=== PATIENT | male | born 1990 | race Caucasian/White ===

== ENCOUNTER 2017-11-29 13:36 | Inpatient (IN) | payer OTHER ==
[~2017-11-29] VITALS: Ht 172.7 cm; Wt 72.9 kg
[~2017-11-29 13:36] MED LIST: ASEN5TAB SL; BENZ1TAB PO; KLON2TAB PO; SERT-129 PO
[2017-11-29 13:50] VITALS: BP 140/90; PULSE 93; RESP 17; TEMP 97.6; O2SAT 100
--- NOTE | 2017-11-29 13:50 | PD ---
HPI Chief Complaint: BA Time Seen by Provider: 13:47 Travel History International Travel<30 days: No Contact w/Intl Traveler<30days: No Traveled to known affect area: No History of Present Illness HPI This is a 27-year-old male who presents under Castle act initiated by the [employer]. According to his paperwork, "subject is diagnosed schizoaffective disorder. Stated he was going to cut himself with a saw. He was hearing voices saying they were going to hurt him." The patient reports that he sees psychiatrist Dr. Chan. 2 days ago his Wellbutrin dose was doubled. He reports that since then he has been having hallucinations. He reports that today he was hearing children play outside that he does not believe there. He then believe that his friend who he has not seen in several years was in the bushes in front of his house cutting down the bushes. He denies saying that he was going to cut himself with a saw. He reports that he told his mother that he thought that his friend was going to cut into the house. He reports that he has only had hallucinations once in the past, years ago when he was withdrawing from gabapentin. He denies any drug or alcohol use. He has no other complaints. PFSH Past Medical History ADHD: No Asthma: No Autoimmune Disease: No Blood Disorders: No Bipolar Disorder: Yes Anxiety: Yes Depression: Yes Cancer: No Cardiovascular Problems: No Diabetes: No Diminished Hearing: No Endocrine: No GERD: Yes Genitourinary: No Headaches: Yes Immune Disorder: No Musculoskeletal: No Neurologic: Yes Psychiatric: Yes (DEPRESSION) Reproductive: No Respiratory: No Migraines: No Schizophrenia: Yes Seizures: No Thyroid Disease: No Ulcer: No Past Surgical History Abdominal Surgery: No Appendectomy: No Cardiac Surgery: No Cholecystectomy: No Ear Surgery: No Endocrine Surgery: No Eye Surgery: No Genitourinary Surgery: No Gynecologic Surgery: No Neurologic Surgery: No Oral Surgery: No Thoracic Surgery: No Other Surgery: Yes (club foot) Social History Alcohol Use: No (pt denies " never ") Tobacco Use: Yes (1/2 ppd) Substance Use: Yes Allergies-Medications (Allergen,Severity, Reaction): Coded Allergies: amoxicillin (Unverified Allergy, Severe, Hives, 07/03/17) penicillin G (Unverified Allergy, Severe, Hives, 07/03/17) Reported Meds & Prescriptions Reported Meds & Active Scripts Active Klonopin (Clonazepam) 2 Mg Tab 2 Mg PO TID Benztropine Mesylate 1 Mg Tab 1 Mg PO TID 5 Days Sertraline 100 mg (Sertraline HCl) 100 Mg Tab 1 Tab PO DAILY 5 Days Saphris 5 mg (Asenapine Maleate 5 mg) 5 Mg Sub 10 Mg SL HS 5 Days Review of Systems Except as stated in HPI: all other systems reviewed are Neg Physical Exam Narrative GENERAL: Well-developed well-nourished male in no acute distress SKIN: Warm and dry. HEAD: Atraumatic. Normocephalic. EYES: Pupils equal and round. No scleral icterus. No injection or drainage. ENT: No nasal bleeding or discharge. Mucous membranes pink and moist. NECK: Trachea midline. No JVD. CARDIOVASCULAR: Regular rate and rhythm. No murmur appreciated. RESPIRATORY: No accessory muscle use. Clear to auscultation. Breath sounds equal bilaterally. GASTROINTESTINAL: Abdomen soft, non-tender, nondistended. Hepatic and splenic margins not palpable. MUSCULOSKELETAL: No obvious deformities. No clubbing. No cyanosis. No edema. NEUROLOGICAL: Awake and alert. No obvious cranial nerve deficits. Motor grossly within normal limits. Normal speech. PSYCHIATRIC: Anxious, guarded. Data Data Last Documented VS Vital Signs Date Time Temp Pulse Resp B/P (MAP) Pulse Ox O2 Delivery O2 Flow Rate FiO2 11/29/17 13:50 97.6 93 17 140/90 (107) 100 Orders Orders Complete Blood Count With Diff (11/29/17 13:59) Comprehensive Metabolic Panel (11/29/17 13:59) Psych Screen (11/29/17 13:59) Drug Screen, Random Urine (11/29/17 13:59) Labs Laboratory Tests Test 11/29/17 15:30 White Blood Count 8.5 TH/MM3 Red Blood Count 4.91 MIL/MM3 Hemoglobin 14.5 GM/DL Hematocrit 42.0 % Mean Corpuscular Volume 85.6 FL Mean Corpuscular Hemoglobin 29.5 PG Mean Corpuscular Hemoglobin Concent 34.4 % Red Cell Distribution Width 13.5 % Platelet Count 276 TH/MM3 Mean Platelet Volume 8.6 FL Neutrophils (%) (Auto) 50.1 % Lymphocytes (%) (Auto) 37.9 % Monocytes (%) (Auto) 9.7 % Eosinophils (%) (Auto) 1.6 % Basophils (%) (Auto) 0.7 % Neutrophils # (Auto) 4.3 TH/MM3 Lymphocytes # (Auto) 3.2 TH/MM3 Monocytes # (Auto) 0.8 TH/MM3 Eosinophils # (Auto) 0.1 TH/MM3 Basophils # (Auto) 0.1 TH/MM3 CBC Comment DIFF FINAL Differential Comment Blood Urea Nitrogen 11 MG/DL Creatinine 1.06 MG/DL Random Glucose 100 MG/DL Total Protein 8.0 GM/DL Albumin 4.3 GM/DL Calcium Level 9.2 MG/DL Alkaline Phosphatase 74 U/L Aspartate Amino Transf (AST/SGOT) 9 U/L Alanine Aminotransferase (ALT/SGPT) 35 U/L Total Bilirubin 0.7 MG/DL Sodium Level 138 MEQ/L Potassium Level 3.7 MEQ/L Chloride Level 102 MEQ/L Carbon Dioxide Level 27.6 MEQ/L Anion Gap 8 MEQ/L Estimat Glomerular Filtration Rate 84 ML/MIN Urine Opiates Screen NEG Urine Barbiturates Screen NEG Urine Amphetamines Screen POS Urine Benzodiazepines Screen NEG Urine Cocaine Screen NEG Urine Cannabinoids Screen NEG MDM Medical Decision Making Medical Screen Exam Complete: Yes Emergency Medical Condition: Yes Medical Record Reviewed: Yes Differential Diagnosis Acute psychosis, substance induced mood disorder, schizoaffective disorder, schizophrenia, bipolar disorder Narrative Course 27-year-old male presents under Castle act for psychiatric evaluation. Mental health screening discussed with the patient. Psychiatric screen ordered. Drug screen positive for amphetamines. Medically cleared for psychiatric disposition. Diagnosis Primary Impression: Medical clearance for psychiatric admission Ronnie Sun Nov 29, 2017 13:50
[2017-11-29 16:34] LABS: ALBUMIN 4.3 GM/DL (3.4-5.0); AST (GOT) 9 U/L (15-37); BICARBONATE 27.6 MEQ/L (21.0-32.0); BLOOD UREA NITROGEN 11 MG/DL (7-18); CALCIUM 9.2 MG/DL (8.5-10.1); CHLORIDE 102 MEQ/L (98-107); CREATININE 1.06 MG/DL (0.60-1.30); GLOMERULAR FILTRATION RATE 84 ML/MIN (>89); GLUCOSE,RANDOM 100 MG/DL (74-106); SODIUM (NA) 138 MEQ/L (136-145)
[2017-11-29 16:35] LABS: ALT (GPT) 35 U/L (12-78)
[2017-11-29 16:37] LABS: ALKALINE PHOSPHATASE 74 U/L (45-117); TOTAL BILIRUBIN ADULT 0.7 MG/DL (0.2-1.0)
[2017-11-29 16:51] LABS: AUTOMATED NEUTROPHIL # 4.3 TH/MM3 (1.8-7.7); BASOPHIL # 0.1 TH/MM3 (0-0.2); BASOPHIL % 0.7 % (0.0-2.0); EOSINOPHIL # 0.1 TH/MM3 (0-0.4); EOSINOPHIL % 1.6 % (0.0-4.0); HEMOGLOBIN 14.5 GM/DL (13.0-17.0); LYMPH % 37.9 % (9.0-44.0); LYMPHOCYTE # 3.2 TH/MM3 (1.0-4.8); MEAN CELL VOLUME 85.6 FL (80.0-100.0); MEAN CORPUSCULAR HEMOGLOBIN 29.5 PG (27.0-34.0); MEAN CORPUSCULAR HGB CONC 34.4 % (32.0-36.0); MEAN PLATELET VOLUME 8.6 FL (7.0-11.0); MONO % 9.7 % (0.0-8.0); MONOCYTE # 0.8 TH/MM3 (0-0.9); NEUT % 50.1 % (16.0-70.0); PLATELET COUNT 276 TH/MM3 (150-450); RED BLOOD COUNT 4.91 MIL/MM3 (4.50-5.90); RED CELL DISTRIBUTION WIDTH 13.5 % (11.6-17.2); WHITE BLOOD COUNT 8.5 TH/MM3 (4.0-11.0)
[2017-11-29 19:55] VITALS: BP 139/82; PULSE 81; RESP 18; TEMP 98.2; O2SAT 100
[2017-11-29] MEDS ORDERED: BUSP1TAB PO (21:48)
[2017-11-29] MEDS ORDERED: BUPR150XL PO (21:48)
[2017-11-29] MEDS ORDERED: REST15CA PO (21:48)
[2017-11-29] MEDS ORDERED: ADDE30TA PO (21:48)
--- NOTE | 2017-11-29 22:39 | PD ---
History of Present Illness Chief Complaint: Psychiatric Symptoms Time Seen by Provider: 21:30 Travel History International Travel<30 Days: No Contact w/Intl Traveler<30days: No Known affected area: No Legal Status Legal Status: Castle Act Castle Act Signed By: Shereen Ulloa History of Present Illness: History of Present Illness HPI This is a 27-year-old male with reported history of schizoaffective disorder, anxiety disorder who presents under Castle act initiated by the [employer]. According to his paperwork, "subject is diagnosed schizoaffective disorder. Stated he was going to cut himself with a saw. He was hearing voices saying they were going to hurt him." The patient also reported that he was hearing voices including hearing children playing outside of his home, he believed that his friend who he has not seen in several years was in the bushes in front of his house cutting down the bushes. Electronic medical record is reviewed. No recent contact with [facility] psychiatry Department. Toxicology positive for amphetamines which are prescribed. The patient is seen in [facility]. He is alert and oriented male who is dressed in [facility] and maintaining hygiene. He appears internally stimulated although he denies he is currently hearing voices. He scans his environment frequently during interview. His affect is very flat. He denies that he said he was going to cut himself and half with a saw. He denies suicidal ideation. He states that he came to the hospital to see if he could get his lab work reviewed and that he only experiences "momentary hallucinations". He does admit that after a recent medication change by his outpatient psychiatrist Dr. Radha Chan 2 days ago, he has not been feeling as well as he had in the past. I contacted his mother Ms. Millie Vincent for collateral information. She reports that the patient has been under increasing stressors during the past several months including that she has stage IV breast cancer. She goes on to tell me that he does not leave the house for any reason except to go to the doctor's office. He reported to her that he was hearing voices and seeing things and that he was going outside the home last night believing that there were people out there that were going to punch him. He asked the mother to call the police. He also was asking the mother for DNR paperwork to be filed on his behalf and told her "you also find out why". Patient allegedly also asked the brother to get him a headstone and instructed him that the headstone will read "I was sick and no one will believe me". The mother tells me that he has not slept in the last 3 days and has engaged in behavior that is unusual for him such as discharging $150 on her credit card for a online dating service. She comes farms that the patient is Wellbutrin was increased recently to 450 mg daily. His Vyvanse was changed to to generic Adderall 30 mg twice a day due to the patient having missed use his Vyvanse prescription. She states that he has a history of overusing the amphetamines . PFSH Past Medical History ADHD: No Asthma: No Autoimmune Disease: No Blood Disorders: No Bipolar Disorder: Yes Anxiety: Yes Depression: Yes Cancer: No Cardiovascular Problems: No Diabetes: No Diminished Hearing: No Endocrine: No Gastrointestinal Disorders: No GERD: Yes Genitourinary: No Headaches: Yes Immune Disorder: No Implanted Vascular Access Dvce: No Musculoskeletal: No Neurologic: Yes Psychiatric: Yes (DEPRESSION) Reproductive: No Respiratory: No Immunizations Current: Yes Migraines: No Schizophrenia: Yes Seizures: No Thyroid Disease: No Ulcer: No Past Surgical History Abdominal Surgery: No Appendectomy: No Cardiac Surgery: No Cholecystectomy: No Ear Surgery: No Endocrine Surgery: No Eye Surgery: No Genitourinary Surgery: No Gynecologic Surgery: No Neurologic Surgery: No Oral Surgery: No Thoracic Surgery: No Other Surgery: Yes (club foot) Psychiatric History Psychiatric History Hx Psychiatric Treatment: PATIENT WAS LAST AT [facility] FROM 09/10/13 TO 09/11/13 FOR POSSIBLE OVERDOSE. History of Inpatient Treatment: Yes Guns or firearms in home: No Social History Single, unemployed. Lives with his parents. Hx Alcohol Use: No (pt denies " never ") Hx Tobacco Use: Yes (1/2 ppd) Hx Substance Use: No Hx of Substance Use Treatment: No Family Psychiatric History Negative Allergies-Medications (Allergen,Severity, Reaction): Coded Allergies: amoxicillin (Unverified Allergy, Severe, Hives, 07/03/17) penicillin G (Unverified Allergy, Severe, Hives, 07/03/17) Reported Meds & Prescriptions Reported Meds & Active Scripts Active Reported Buspirone (Buspirone HCl) 7.5 Mg Tab 7.5 Mg PO BID Restoril (Temazepam) 15 Mg Cap 15 Mg PO HS PRN Adderall (Amphetamine-Dextroamphetamine) 30 Mg Tab 30 Mg PO BID Avoid late evening doses. Space doses at least 4 to 6 hours if more than once/day dosing. Wellbutrin Xl 24 HR (Bupropion HCl) 150 Mg Tab 450 Mg PO DAILY Review of Systems Except as stated in HPI: all other systems reviewed are Neg Mental Status Examination Appearance: Appropriate Consciousness: Alert Orientation: x4 Motor Activity: Normal gait Speech: Slow Language: Adequate Fund of Knowledge: Adequate Attention and Concentration: Inadequate Memory: Unremarkable Mood: Sad Affect: Flat Thought Process & Associations: Intact Thought Content: Appropriate Hallucination Type: None Delusion Type: None Suicidal Ideation: No Suicidal Plan: No Suicidal Intention: No Homicidal Ideation: No Homicidal Plan: No Homicidal Intention: No Insight: Fair Judgment: Adequate MDM Medical Decision Making Medical Record Reviewed: Yes Assessment/Plan 27-year-old male with history of schizoaffective disorder, anxiety disorder who is under Castle act for allegedly stating that he was going to cut himself with a saw. Patient also responding to internal stimuli. There is concern that the patient has not slept in the last 3 days, has overused his amphetamine prescription, has engage in unusual behavior such as signing up for an online dating service with his mother's credit card. He has also asked his brother to purchase a tombstone for him and has asked his mother to file DNR paperwork on his behalf. This time the patient meets criteria for inpatient psychiatric hospitalization for further observation, safety and medication evaluation. Orders Orders Complete Blood Count With Diff (11/29/17 13:59) Comprehensive Metabolic Panel (11/29/17 13:59) Psych Screen (11/29/17 13:59) Drug Screen, Random Urine (11/29/17 13:59) Results Vital Signs Date Time Temp Pulse Resp B/P (MAP) Pulse Ox O2 Delivery O2 Flow Rate FiO2 11/29/17 19:55 98.2 81 18 139/82 (101) 100 Room Air 11/29/17 13:50 97.6 93 17 140/90 (107) 100 Laboratory Tests Test 11/29/17 15:30 White Blood Count 8.5 Red Blood Count 4.91 Hemoglobin 14.5 Hematocrit 42.0 Mean Corpuscular Volume 85.6 Mean Corpuscular Hemoglobin 29.5 Mean Corpuscular Hemoglobin Concent 34.4 Red Cell Distribution Width 13.5 Platelet Count 276 Mean Platelet Volume 8.6 Neutrophils (%) (Auto) 50.1 Lymphocytes (%) (Auto) 37.9 Monocytes (%) (Auto) 9.7 Eosinophils (%) (Auto) 1.6 Basophils (%) (Auto) 0.7 Neutrophils # (Auto) 4.3 Lymphocytes # (Auto) 3.2 Monocytes # (Auto) 0.8 Eosinophils # (Auto) 0.1 Basophils # (Auto) 0.1 CBC Comment DIFF FINAL Differential Comment Blood Urea Nitrogen 11 Creatinine 1.06 Random Glucose 100 Total Protein 8.0 Albumin 4.3 Calcium Level 9.2 Alkaline Phosphatase 74 Aspartate Amino Transf (AST/SGOT) 9 Alanine Aminotransferase (ALT/SGPT) 35 Total Bilirubin 0.7 Sodium Level 138 Potassium Level 3.7 Chloride Level 102 Carbon Dioxide Level 27.6 Anion Gap 8 Estimat Glomerular Filtration Rate 84 Urine Opiates Screen NEG Urine Barbiturates Screen NEG Urine Amphetamines Screen POS Urine Benzodiazepines Screen NEG Urine Cocaine Screen NEG Urine Cannabinoids Screen NEG Diagnosis Primary Impression: Medical clearance for psychiatric admission Additional Impressions: Schizoaffective disorder Amphetamine-induced psychotic disorder Admitting Information Admitting Physician Requests: Admit Problem Qualifiers Additional Impressions: Schizoaffective disorder Qualified Codes: F25.1 - Schizoaffective disorder, depressive type Amphetamine-induced psychotic disorder Qualified Codes: F15.951 - Other stimulant use, unspecified with stimulant- induced psychotic disorder with hallucinations Ayala Meneses Nov 29, 2017 22:38
[2017-11-29] MEDS ORDERED: ACETAMINOPHEN 325 MG TAB PO PRN (22:45)
[2017-11-29] MEDS ORDERED: MAGNESIUM HYDROXIDE SUSP 30 ML CUP PO PRN (22:45)
[2017-11-29] MEDS ORDERED: ALUMINUM/MAGNESIUM/SIMETH 30 ML CUP PO PRN (22:45)
[2017-11-29 23:45] VITALS: BP 125/71; PULSE 81; RESP 18; TEMP 98.2
[2017-11-30 05:44] VITALS: BP 114/58; PULSE 81; RESP 18; TEMP 98.5; O2SAT 99
[2017-11-30 11:57] LABS: BICARBONATE 30.2 MEQ/L (21.0-32.0); BLOOD UREA NITROGEN 13 MG/DL (7-18); CALCIUM 9.4 MG/DL (8.5-10.1); CHLORIDE 105 MEQ/L (98-107); CHOLESTEROL 268 MG/DL (120-200); CREATININE 1.03 MG/DL (0.60-1.30); GLOMERULAR FILTRATION RATE 87 ML/MIN (>89); GLUCOSE,RANDOM 93 MG/DL (74-106); SODIUM (NA) 141 MEQ/L (136-145); TRIGLYCERIDES 132 MG/DL (42-150)
[2017-11-30 12:07] LABS: CHOLESTEROL/ HDL RATIO 6.16 RATIO; HDL CHOLESTEROL 43.5 MG/DL (40.0-60.0); LDL CHOLESTEROL 198 MG/DL (0-99)
--- NOTE | 2017-11-30 14:33 | HHI.HP ---
Provisional Diagnosis Admission Date Nov 29, 2017 at 22:43 [place] I. 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 Express and informed consent means consent voluntarily given in writing, by a competent person, after sufficient explanation and disclosure of the subject matter involved to enable the person to make a knowing and willful decision without any element of force, fraud, deceit, duress, or other form of constraint or coercion. This person is 18 years of age or older, is not now known to be incompetent to consent to treatment with a guardian advocate, and does not have a health care surrogate or proxy currently making medical treatment decisions. I have found this person to be one of the following: [] Competent to provide express and informed consent, as defined above, for voluntary admission to this facility and is competent to provide express and informed consent for treatment. He/she has the consistent capacity to make well reasoned, willful, and knowing decisions concerning his or her medical or mental health treatment. The person fully and consistently understands the purpose of the admission for examination/placement and is fully capable of personally exercising all rights assured [place] [] Incompetent to provide express and informed consent to voluntary admission, and this is incompetent to provide express and informed consent to treatment. The person must be transferred to involuntary status and a petition for a guardian advocate filed with the Circuit Court. [xxx] Refusing to provide express and informed consent to voluntary admission but is competent to provide express and informed consent for treatment. The person must be discharged or transferred to involuntary status. Form shall be completed within 24 hours of a person's arrival at the receiving facility and filed in the clinical record of each person: 1. Admitted on a voluntary basis 2. Permitted to provide express and informed consent to his/her own treatment 3. Allowed to transfer from involuntary to voluntary status 4. Prior to permitting a person to consent to his or her own treatment after having been previously found incompetent to consent to treatment. History of Present Illness Capacity: Lacks Capacity (patient lacks capacity sign for hospitalization, patient has capacity to sign for medication) HPI Patient is a 27-year-old white male who comes her under [place] act by the [place] [employer] dated 11/29/17 at 13 12 PM that document reviewed stating subject diagnosis schizoaffective disorder stated he was going to cut himself with a saw. Was hearing voices saying they were going to hurt him" patient seen screened in the emergency department urine toxicology positive for amphetamines only, alcohol level was negative. Review of the EMR shows patient has had contact with mental health system since a teenager was hospitalized here 2005 for depression. He has had issues with misuse of psychostimulants including amphetamines and Vyvanse. At the present time is being seen by Dr. Chan. He has had adjustment of his Wellbutrin doubling the dose about a week ago. He has noticed some increase in perceptual issues vague voices and visual issues yesterday while he was exercising. The statements of somewhat confusing tangential and circumstantial. He is somewhat vague about suicidality at this time. Though the voices are somewhat of a command nature. He denies any alcohol use or other drug use Dr. Radha Chan appears to also prescribed him the Wellbutrin Restoril and BuSpar. Patient states he lives with his parents and his brother He denies any prior physical or sexual abuse. He says that his depression and his family. At the present time I feel patient does meet criteria for further observation assessment under the [place] act I will do first opinion request second opinion. I feel he does have some capacity make decisions concerning his medication. We'll try to keep him as substance free as possible at the present time. Attempted to refrain from benzodiazepines of psychostimulants. Hopefully severe fairly short stay ligature of the community into private psychiatrist Review of Systems Constitutional: DENIES: Diaphoretic episodes, Fatigue, Fever, Weight gain, Weight loss, Chills, Dizziness, Change in appetite, Night Sweats Endocrine: DENIES: Heat/cold intolerance, Polydipsia, Polyuria, Polyphagia Eyes: DENIES: Blurred vision, Diplopia, Eye inflammation, Eye pain, Vision loss , Photosensitivity, Double Vision Ears, nose, mouth, throat: DENIES: Tinnitus, Hearing loss, Vertigo, Nasal discharge, Oral lesions, Throat pain, Hoarseness, Ear Pain, Running Nose, Epistaxis, Sinus Pain, Toothache, Odynophagia Respiratory: DENIES: Apneas, Cough, Snoring, Wheezing, Hemoptysis, Sputum production, Shortness of breath Cardiovascular: DENIES: Chest pain, Palpitations, Syncope, Dyspnea on Exertion , PND, Lower Extremity Edema, Orthopnea, Claudication Gastrointestinal: DENIES: Abdominal pain, Black stools, Bloody stools, Constipation, Diarrhea, Nausea, Vomiting, Difficulty Swallowing, Anorexia Genitourinary: DENIES: Sexual dysfunction, Urinary frequency, Urinary incontinence, Urgency, Hematuria, Dysuria, Nocturia, Penile Discharge, Testicular Pain, Testicular Swelling Musculoskeletal: DENIES: Joint pain, Muscle aches, Stiffness, Joint Swelling, Back pain, Neck pain Integumentary: DENIES: Abnormal pigmentation, Nail changes, Pruritus, Rash Hematologic/lymphatic: DENIES: Bruising, Lymphadenopathy Immunologic/allergic: DENIES: Eczema, Urticaria Psychiatric: COMPLAINS OF: Anxiety, Depression, Hallucinations, Suicidal Ideation Past Psych History Psychological trauma history Patient denies physical or sexual abuse Violence risk - others (6 mos) Low Violence risk - self (6 mos) Moderate Substance Abuse History Drugs/Alcohol past 12 months Patient denies alcohol or drugs acknowledges at times misuse of psychostimulants Past Family Social History Coded Allergies: amoxicillin (Unverified Allergy, Severe, Hives, 07/03/17) penicillin G (Unverified Allergy, Severe, Hives, 07/03/17) Reported Medications Buspirone (Buspirone) 7.5 Mg Tab, 7.5 MG PO BID for Anxiety, TAB 0 Refills 11/29/17 Temazepam (Restoril) 15 Mg Cap, 15 MG PO HS Y for INSOMNIA, #30 CAP 0 Refills 11/29/17 Amphetamine-Dextroamphetamine (Adderall) 30 Mg Tab, 30 MG PO BID for Hyperactivity Control, #60 TAB 0 Refills Avoid late evening doses. Space doses at least 4 to 6 hours if more than once/day dosing. 11/29/17 Bupropion HCl ER 24 HR (Wellbutrin Xl 24 HR) 150 Mg Tab, 450 MG PO DAILY for Control Depression, TAB 0 Refills 11/29/17 Discontinued Scripts Clonazepam (Klonopin) 2 Mg Tab, 2 MG PO TID for Anxiety and/or Insomnia, #30 TAB Prov:Pete Ayon MD 08/10/15 Benztropine Mesylate (Benztropine Mesylate) 1 Mg Tab, 1 MG PO TID for schizoaffective disorder for 5 Days, TAB Prov:Surinder Victor 08/10/15 Sertraline 100 mg (Sertraline 100 mg) 100 Mg Tab, 1 TAB PO DAILY for schizoaffective disorder for 5 Days, TAB Prov:Surinder Victor 08/10/15 Asenapine Maleate 5 mg (Saphris 5 mg) 5 Mg Sub, 10 MG SL HS for schizoaffective disorder for 5 Days, SUB Prov:Surinder Victor 08/10/15 Current Medications Medications (Trade) Dose Ordered Sig/Aisha Route Start Time Stop Time Status Last Admin (Tylenol) 650 mg Q4H PRN PO 11/29/17 22:45 (Milk Of Magnesia Liq) 30 ml DAILY PRN PO 11/29/17 22:45 (Mag-Al Plus Susp Liq) 30 ml Q6H PRN PO 11/29/17 22:45 (Atarax) 50 mg Q6H PRN PO 11/30/17 14:30 UNV (Buspar) 7.5 mg BID PO 11/30/17 21:00 UNV Family Psych History Patient long history mental health contact going back to adolescence Social History Patient single lives with family Patient's Strengths (min. 2) Patient verbal labile axis health care Physical Exam Patient medically cleared through ED exam reviewed and agreed with at the present time patient sitting quietly in his room is in no acute distress. He is in no respiratory distress. No complaints of abdominal pain. Patient overall 4 extremities without difficulty. No abnormal motor movements noted Vital Signs Vital Signs Date Time Temp Pulse Resp B/P (MAP) Pulse Ox O2 Delivery O2 Flow Rate FiO2 11/30/17 05:44 98.5 81 18 114/58 (76) 99 11/29/17 19:55 Room Air I/O 11/30/17 11/30/17 12/01/17 08:00 16:00 00:00 Intake Total 480 ml Balance 480 ml Lab Results Test 11/29/17 15:30 11/30/17 10:50 White Blood Count 8.5 TH/MM3 Red Blood Count 4.91 MIL/MM3 Hemoglobin 14.5 GM/DL Hematocrit 42.0 % Mean Corpuscular Volume 85.6 FL Mean Corpuscular Hemoglobin 29.5 PG Mean Corpuscular Hemoglobin Concent 34.4 % Red Cell Distribution Width 13.5 % Platelet Count 276 TH/MM3 Mean Platelet Volume 8.6 FL Neutrophils (%) (Auto) 50.1 % Lymphocytes (%) (Auto) 37.9 % Monocytes (%) (Auto) 9.7 % Eosinophils (%) (Auto) 1.6 % Basophils (%) (Auto) 0.7 % Neutrophils # (Auto) 4.3 TH/MM3 Lymphocytes # (Auto) 3.2 TH/MM3 Monocytes # (Auto) 0.8 TH/MM3 Eosinophils # (Auto) 0.1 TH/MM3 Basophils # (Auto) 0.1 TH/MM3 CBC Comment DIFF FINAL Differential Comment Blood Urea Nitrogen 11 MG/DL 13 MG/DL Creatinine 1.06 MG/DL 1.03 MG/DL Random Glucose 100 MG/DL 93 MG/DL Total Protein 8.0 GM/DL Albumin 4.3 GM/DL Calcium Level 9.2 MG/DL 9.4 MG/DL Alkaline Phosphatase 74 U/L Aspartate Amino Transf (AST/SGOT) 9 U/L Alanine Aminotransferase (ALT/SGPT) 35 U/L Total Bilirubin 0.7 MG/DL Sodium Level 138 MEQ/L 141 MEQ/L Potassium Level 3.7 MEQ/L 3.5 MEQ/L Chloride Level 102 MEQ/L 105 MEQ/L Carbon Dioxide Level 27.6 MEQ/L 30.2 MEQ/L Anion Gap 8 MEQ/L 6 MEQ/L Estimat Glomerular Filtration Rate 84 ML/MIN 87 ML/MIN Urine Opiates Screen NEG Urine Barbiturates Screen NEG Urine Amphetamines Screen POS Urine Benzodiazepines Screen NEG Urine Cocaine Screen NEG Urine Cannabinoids Screen NEG Triglycerides Level 132 MG/DL Cholesterol Level 268 MG/DL LDL Cholesterol 198 MG/DL HDL Cholesterol 43.5 MG/DL Cholesterol/HDL Ratio 6.16 RATIO Thyroid Stimulating Hormone 3rd Gen 0.879 uIU/ML Mental Status Examination Appearance: Appropriate Consciousness: Alert Orientation: x4 Motor Activity: Normal gait Speech: Slow Language: Adequate Fund of Knowledge: Adequate Attention and Concentration: Inadequate Memory: Unremarkable Mood: Sad Affect: Flat Thought Process & Associations: Intact Thought Content: Appropriate Hallucination Type: None Delusion Type: None Suicidal Ideation: No Suicidal Plan: No Suicidal Intention: No Homicidal Ideation: No Homicidal Plan: No Homicidal Intention: No Insight: Fair Judgment: Adequate (fair) Assessment & Plan Problem List: (1) Brief psychotic disorder ICD Codes: F23 - Brief psychotic disorder Status: Acute Assessment & Plan Estimated LOS: days 3-5 it appears patient psychotic episode might be dissipating somewhat mother still some confusion and disorganization noted. I feel patient does meet criteria at this time for further observation assessment under the [place] act thus I'll do first opinion request second opinion. We will attempt to refrain from any psychostimulants benzodiazepines. Discharge Planning Probable to return to family Request HC Surrog/Guard Advoc?: No Caio Wright MD Nov 30, 2017 14:33
[2017-11-30] MEDS ORDERED: PILL SPLITTER OTHER PRN (15:00)
[2017-11-30 16:25] LABS: HEMOGLOBIN A1C 5.1 % (4.3-6.0)
--- NOTE | 2017-11-30 16:31 | EKG ---
Date Performed: 11/30/2017 Time Performed: 07:33:21 PTAGE: 27 years EKG: Sinus rhythm NORMAL ECG PREVIOUS TRACING : 08/09/2015 04.02 Since previous tracing, no significant change noted DOCTOR: Jasbir Ventura Interpretating Date/Time 11/30/2017 16:30:22
[2017-11-30 18:47] VITALS: BP 134/63; PULSE 79; RESP 18; TEMP 98; O2SAT 99
[2017-11-30 18:48] VITALS: BP 134/63; PULSE 79; RESP 18; TEMP 98; O2SAT 99
[2017-11-30] MEDS: busPIRone HCL 5 MG TAB PO SCH (21:12)
[2017-12-01] MEDS: busPIRone HCL 5 MG TAB PO SCH ×2 (10:11→23:05)
--- NOTE | 2017-12-01 12:52 | PD.CONS ---
[facility] By Reason for Consult Medical manage, seizure disorders. Primary Care Physician No Primary Care Physician Diagnoses: (1) Anxiety (2) Seizure (3) Schizoaffective disorder History of Present Illness 27-year-old male with past medical history of schizo affective disorder, anxiety , depression, and seizures. Patient was [place] acted by [employer] police department on 11/29/17 following suicidal statements of cutting himself with a saw. He is currently in inpatient psychiatry department, medical team consulted due to history of seizure disorder. Patient is seen and examined in his room resting comfortably in bed. He reports that he was previously on Klonopin to help with anxiety and recently decreased to a very minimal dose. He tells me that he had a prescription for Klonopin but somehow lost it and then later states that the pharmacy was actually not able to fill it. He was due to go back to his doctor to get a new prescription for Klonopin, however got [place] acted. He reports that his last seizure was about 18 months ago, denies ever being on any seizure medications. He also states that he has not had any Klonopin in the past several weeks. He reports that he has had seizures in the past after being taken off of Klonopin. At the time of my examination he is awake and alert, cooperative. He denies any fevers, chills, nausea, vomiting, diarrhea, shortness of breath or chest pains. Review of Systems Except as stated in HPI: all other systems reviewed are Neg Past Family Social History Allergies: Coded Allergies: amoxicillin (Unverified Allergy, Severe, Hives, 07/03/17) penicillin G (Unverified Allergy, Severe, Hives, 07/03/17) Past Medical History Schizoaffective disorder Depression Anxiety Seizures ? Benzo withdrawal. Past Surgical History left forearm surgery due to fracture Right foot surgery Reported Medications Reported Meds & Active Scripts Active Reported Buspirone (Buspirone HCl) 7.5 Mg Tab 7.5 Mg PO BID Restoril (Temazepam) 15 Mg Cap 15 Mg PO HS PRN Adderall (Amphetamine-Dextroamphetamine) 30 Mg Tab 30 Mg PO BID Avoid late evening doses. Space doses at least 4 to 6 hours if more than once/day dosing. Wellbutrin Xl 24 HR (Bupropion HCl) 150 Mg Tab 450 Mg PO DAILY Active Ordered Medications Current Medications Medications (Trade) Dose Ordered Sig/Aisha Route Start Time Stop Time Status Last Admin (Tylenol) 650 mg Q4H PRN PO 11/29/17 22:45 (Milk Of Magnesia Liq) 30 ml DAILY PRN PO 11/29/17 22:45 (Mag-Al Plus Susp Liq) 30 ml Q6H PRN PO 11/29/17 22:45 (Atarax) 50 mg Q6H PRN PO 11/30/17 14:30 12/01/17 13:26 (Buspar) 7.5 mg BID PO 11/30/17 21:00 12/01/17 10:11 (Pill Splitter) 1 ea UNSCH PRN OTHER 11/30/17 15:00 Family History Mother: colon cancer Social History Tobacco use: Uses e-cigarette Alcohol use: Denies Illicit drug use: denies Physical Exam Vital Signs Vital Signs Date Time Temp Pulse Resp B/P (MAP) Pulse Ox O2 Delivery O2 Flow Rate FiO2 11/30/17 18:48 98.0 79 18 134/63 (86) 99 11/30/17 18:47 98.0 79 18 134/63 (86) 99 Physical Exam GENERAL: This is a well-nourished, well-developed patient, in no apparent distress. SKIN: No rashes, ecchymoses or lesions. Cool and dry. HEAD: Atraumatic. Normocephalic. No temporal or scalp tenderness. EYES: Pupils equal round and reactive. Extraocular motions intact. No scleral icterus. No injection or drainage. ENT: Nose without bleeding, purulent drainage or septal hematoma. Throat without erythema. Uvula midline. Airway patent. NECK: Trachea midline. No JVD or lymphadenopathy. Supple. CARDIOVASCULAR: Regular rate and rhythm without murmurs, gallops, or rubs. RESPIRATORY: Clear to auscultation. Breath sounds equal bilaterally. No wheezes , rales, or rhonchi. GASTROINTESTINAL: Abdomen soft, non-tender, nondistended. No guarding. MUSCULOSKELETAL: Extremities without clubbing, cyanosis, or edema. No joint tenderness, effusion, or edema noted. No calf tenderness. NEUROLOGICAL: Awake and alert. Cranial nerves II through XII intact. Motor and sensory grossly within normal limits. Five out of 5 muscle strength in all muscle groups. Normal speech. Result Diagram: 11/29/17 1530 11/30/17 1050 Assessment and Plan Assessment and Plan 27-year-old male with past medical history of anxiety, schizoaffective disorder , depression, and seizures admitted to inpatient psychiatry due to suicidal statements under [place] act. Medical management consulted due to his history of seizures. Schizoaffective disorder, suicidal statements Anxiety - Management per psychiatry. Seizures - It sounds as though patient was tapered off Klonopin by his PCP since he has not been taking this for the past week. - Looked back through her past medical records here at [facility] patient was seen in July 2015 by neurology following seizures. At that time patient had been discontinued off clonazepam and seizures were suspected to be from benzo withdrawals. - Patient does not report being on any antiseizure medication, recently discontinued Klonopin several weeks ago. - Toxicology report on admission negative - Will monitor closely for seizure activity - Will not restart clonazepam at this moment as it sounds like his doctor had slowly tapered him off this. - Treatment for his anxiety we will be managed by psychiatry team. - Patient understands and is agreeable to plan. DVT prophylaxis- ambulating Patient discussed with nurse. Thank you for this consultation will continue to follow along. Problem Qualifiers (1) Schizoaffective disorder: Qualified Codes: F25.1 - Schizoaffective disorder, depressive type Fantasma Angeles Dec 01, 2017 12:52
[2017-12-01] MEDS: hydrOXYzine HCL 50 MG TAB PO PRN (13:26)
--- NOTE | 2017-12-01 15:42 | PD.PSY.CON ---
Provisional Diagnosis Admission Date Nov 29, 2017 at 22:43 [place] I. 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 Chart reviewed.Pt is a 27YOWM with a hx of schizoaffective d/o was admitted to [facility] under a BA secondary to psychosis and stating that he was going to cut himself with a saw. He reports AH began soon after wellbutrin was increased. Also of note, UDS is positive for amphetamines and per H&P pt has hx of misuse. He has been in bed most of day. His affect and mannerisms are flat. jPist Past Family Social History Coded Allergies: amoxicillin (Unverified Allergy, Severe, Hives, 07/03/17) penicillin G (Unverified Allergy, Severe, Hives, 07/03/17) Reported Medications Buspirone (Buspirone) 7.5 Mg Tab, 7.5 MG PO BID for Anxiety, TAB 0 Refills 11/29/17 Temazepam (Restoril) 15 Mg Cap, 15 MG PO HS Y for INSOMNIA, #30 CAP 0 Refills 11/29/17 Amphetamine-Dextroamphetamine (Adderall) 30 Mg Tab, 30 MG PO BID for Hyperactivity Control, #60 TAB 0 Refills Avoid late evening doses. Space doses at least 4 to 6 hours if more than once/day dosing. 11/29/17 Bupropion HCl ER 24 HR (Wellbutrin Xl 24 HR) 150 Mg Tab, 450 MG PO DAILY for Control Depression, TAB 0 Refills 11/29/17 Discontinued Scripts Clonazepam (Klonopin) 2 Mg Tab, 2 MG PO TID for Anxiety and/or Insomnia, #30 TAB Prov:Pete Ayon MD 08/10/15 Benztropine Mesylate (Benztropine Mesylate) 1 Mg Tab, 1 MG PO TID for schizoaffective disorder for 5 Days, TAB Prov:Surinder Victor 08/10/15 Sertraline 100 mg (Sertraline 100 mg) 100 Mg Tab, 1 TAB PO DAILY for schizoaffective disorder for 5 Days, TAB Prov:Surinder Victor 08/10/15 Asenapine Maleate 5 mg (Saphris 5 mg) 5 Mg Sub, 10 MG SL HS for schizoaffective disorder for 5 Days, SUB Prov:Surinder Victor 08/10/15 Current Medications Medications (Trade) Dose Ordered Sig/Aisha Route Start Time Stop Time Status Last Admin (Tylenol) 650 mg Q4H PRN PO 11/29/17 22:45 (Milk Of Magnesia Liq) 30 ml DAILY PRN PO 11/29/17 22:45 (Mag-Al Plus Susp Liq) 30 ml Q6H PRN PO 11/29/17 22:45 (Atarax) 50 mg Q6H PRN PO 11/30/17 14:30 12/01/17 13:26 (Buspar) 7.5 mg BID PO 11/30/17 21:00 12/01/17 10:11 (Pill Splitter) 1 ea UNSCH PRN OTHER 11/30/17 15:00 Patient's Strengths (min. 2) Patient verbal labile axis health care Physical Exam Vital Signs Vital Signs Date Time Temp Pulse Resp B/P (MAP) Pulse Ox O2 Delivery O2 Flow Rate FiO2 11/30/17 18:48 98.0 79 18 134/63 (86) 99 11/29/17 19:55 Room Air Mental Status Examination Appearance: Appropriate Consciousness: Alert Orientation: x4 Motor Activity: Normal gait Speech: Slow Language: Adequate Fund of Knowledge: Adequate Attention and Concentration: Inadequate Memory: Unremarkable Mood: Sad Affect: Flat Thought Process & Associations: Intact Thought Content: Appropriate Hallucination Type: Other (denies but appears internally stimulated) Delusion Type: None Suicidal Ideation: No Suicidal Plan: No Suicidal Intention: No Homicidal Ideation: No Homicidal Plan: No Homicidal Intention: No Insight: Fair Judgment: Adequate (fair) Assessment & Plan Problem List: (1) Brief psychotic disorder ICD Codes: F23 - Brief psychotic disorder Status: Acute Assessment & Plan I agree pt meets criteria due to impairments in safety. erika LOS: days Request HC Surrog/Guard Advoc?: Karina Ford MD Dec 01, 2017 15:42
[2017-12-01 18:28] VITALS: BP 109/61; PULSE 70; RESP 18; TEMP 98.2; O2SAT 97
[2017-12-02 05:37] VITALS: BP 107/73; PULSE 75; RESP 17; TEMP 98.3; O2SAT 99
[2017-12-02] MEDS: busPIRone HCL 5 MG TAB PO SCH ×2 (10:25→20:55)
--- NOTE | 2017-12-02 13:15 | HHI.PYPN ---
Subjective Remarks Pt seen and discussed with staff. He has been compliant with medications and denies side effects. Anxiety symptoms have been controlled with hydroxyzine. He remains disheveled and has been laying in bed most of day. He is flat and resistant to coming out of room and participating in ADLs.He did visit with visitors without incident. No SI/HI. He denies AVH today. Mental Status Examination Appearance: Appropriate Consciousness: Alert Orientation: x4 Motor Activity: Normal gait Speech: Slow Language: Adequate Fund of Knowledge: Adequate Attention and Concentration: Inadequate Memory: Unremarkable Mood: Sad Affect: Flat (but a bit brighter than yesterday) Thought Process & Associations: Intact Thought Content: Appropriate Hallucination Type: None Delusion Type: None Suicidal Ideation: No Suicidal Plan: No Suicidal Intention: No Homicidal Ideation: No Homicidal Plan: No Homicidal Intention: No Insight: Fair Judgment: Adequate (fair) Results Vitals/IOs Vital Signs Date Time Temp Pulse Resp B/P (MAP) Pulse Ox O2 Delivery O2 Flow Rate FiO2 12/02/17 05:37 98.3 75 17 107/73 (84) 99 11/29/17 19:55 Room Air Intake and Output 12/02/17 12/02/17 12/03/17 08:00 16:00 00:00 Intake Total 240 ml 240 ml Balance 240 ml 240 ml Assessment & Plan Problem List: (1) Brief psychotic disorder ICD Codes: F23 - Brief psychotic disorder Status: Acute Assessment & Plan Pt is improving. Continue current tx plan. Estimated LOS: days Justification for Cont. Inpt. risk of decompensation Request HC Surrog/Guard Advoc?: Karina Ford MD Dec 02, 2017 13:15
--- NOTE | 2017-12-02 13:55 | HHI.PR ---
Subjective Remarks Follow-up on 27-year-old male with questionable seizures, possibly related to then so withdrawals. Patient seen and examined resting comfortably in bed in no acute distress. He reports having a good night with no complaints of pain, shortness of breath, fever, chills, nausea, vomiting, diarrhea. He also denies any kind of seizure activity, confirmed by nurse. Spoke with nurses states patient might be discharged tomorrow. Objective Vitals Vital Signs Date Time Temp Pulse Resp B/P (MAP) Pulse Ox O2 Delivery O2 Flow Rate FiO2 12/02/17 05:37 98.3 75 17 107/73 (84) 99 12/01/17 18:28 98.2 70 18 109/61 (77) 97 I/O 12/01/17 12/01/17 12/01/17 12/02/17 12/02/17 12/02/17 07:00 15:00 23:00 07:00 15:00 23:00 Intake Total 480 ml Balance 480 ml Intake Oral 480 ml Result Diagram: 11/29/17 1530 11/30/17 1050 Objective Remarks GENERAL: This is a well-nourished, well-developed patient, in no apparent distress. SKIN: Cool and dry. HEAD: Atraumatic. Normocephalic. EYES: Pupils equal round and reactive. Extraocular motions intact. No scleral icterus. No injection or drainage. ENT: Nose without bleeding, purulent drainage. Airway patent. NECK: Trachea midline. CARDIOVASCULAR: Regular rate and rhythm without murmurs, gallops, or rubs. RESPIRATORY: Clear to auscultation. Breath sounds equal bilaterally. No wheezes , rales, or rhonchi. GASTROINTESTINAL: Abdomen soft, non-tender, nondistended. No guarding. MUSCULOSKELETAL: Extremities without clubbing, cyanosis, or edema. NEUROLOGICAL: Awake and alert oriented x3. Motor and sensory grossly within normal limits. Moves all extremities without difficulties. Speech is normal. A/P Problem List: (1) Anxiety ICD Code: F41.9 - Anxiety disorder, unspecified (2) Seizure ICD Code: R56.9 - Unspecified convulsions (3) Schizoaffective disorder ICD Code: F25.9 - Schizoaffective disorder Status: Chronic Assessment and Plan 27-year-old male with past medical history of anxiety, schizoaffective disorder , depression, and seizures admitted to inpatient psychiatry due to suicidal statements under [place] act. Medical management consulted due to his history of seizures. Schizoaffective disorder, suicidal statements Anxiety - Management per psychiatry. -Possible discharge tomorrow. Seizures - It sounds as though patient was tapered off Klonopin by his PCP since he has not been taking this for the past week. - Looked back through her past medical records here at [facility] patient was seen in July 2015 by neurology following seizures. At that time patient had been discontinued off clonazepam and seizures were suspected to be from benzo withdrawals. - Patient does not report being on any antiseizure medication, recently discontinued Klonopin several weeks ago. - Toxicology report on admission negative - Will monitor closely for seizure activity - Will not restart clonazepam at this moment as it sounds like his doctor had slowly tapered him off this. - Treatment for his anxiety we will be managed by psychiatry team. -No seizure activity reported by patient or nurse. DVT prophylaxis- ambulating Patient discussed with nurse. Will sign off, please reconsult if needed. Problem Qualifiers (1) Schizoaffective disorder: Qualified Codes: F25.1 - Schizoaffective disorder, depressive type Fantasma Angeles Dec 02, 2017 13:55
[2017-12-02 17:21] VITALS: BP 126/69; PULSE 76; RESP 16; TEMP 98.1; O2SAT 99
[2017-12-02] MEDS: hydrOXYzine HCL 50 MG TAB PO PRN (21:20)
[2017-12-03 05:39] VITALS: BP 124/65; PULSE 63; RESP 18; TEMP 98.3; O2SAT 97
[2017-12-03] MEDS: busPIRone HCL 5 MG TAB PO SCH (08:35)
[2017-12-03] MEDS: hydrOXYzine HCL 50 MG TAB PO PRN (10:19)
[2017-12-03] MEDS ORDERED: BUSP1TAB PO (17:14)
--- NOTE | 2017-12-03 17:18 | HHI.DS ---
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 Chart reviewed.Pt is a 27YOWM with a hx of schizoaffective d/o was admitted to [facility] [place] under a BA secondary to psychosis and stating that he was going to cut himself with a saw. He reports AH began soon after wellbutrin was increased. Also of note, UDS is positive for amphetamines and per H&P pt has hx of misuse. He has been in bed most of day. His affect and mannerisms are flat. jPist Tobacco Use In Past 30 Days: 5 or More Cigarettes/Day Alcohol Use: Never Hospital Course Patient's hospital course was uneventful, denies suicidality withdrawal from his previous medications. Patient seen by me today he is alert oriented calm cooperative and pleasant. He is compliant with medications. He denies suicidality homicidality voices or visions Is been communication with his girlfriend and with his family. They wish to night. Patient able contracted to no harm. At this time I feel patient reached maximum benefit of this hospitalization will allow him to be discharged today with Rx for buspirone only follow-up Dr. Radha Chan Results Blood Pressure 124 / 65 Vital Signs Date Time Temp Pulse Resp B/P (MAP) Pulse Ox O2 Delivery O2 Flow Rate FiO2 12/03/17 05:39 98.3 63 18 124/65 (84) 97 11/29/17 19:55 Room Air Laboratory Results Test 11/30/17 10:50 Cholesterol Level 268 MG/DL (120-200) HDL Cholesterol 43.5 MG/DL (40.0-60.0) Hemoglobin A1c 5.1 % (4.3-6.0) LDL Cholesterol 198 MG/DL (0-99) Triglycerides Level 132 MG/DL (42-150) Summary of Procedures None done Pending results at discharge: No Medications # of Antipsychotic meds at D/C: 0 Approp Antipsych med options 1 - Minimum of three failed multiple trials of monotherapy. 2 - Documented plan to taper to monotherapy due to previous use of multiple meds OR cross-taper in progress at D/C. 3 - Documentation of augmentation of Clozapine. 4 - Justification other than those listed in allowable values 1-3, document here : Discharge Discharge Date: Dec 03, 2017 Discharge Diagnosis: (1) Brief psychotic disorder Diagnosis: Principal (Dr. Radha Chan) ICD Code: F23 - Brief psychotic disorder Status: Acute Pt Condition on Discharge: Stable Discharge Disposition: Discharge Home Discharge Instructions Diet Instructions: As Tolerated, No Restrictions Activities you can perform: Regular-No Restrictions Scheduled Appointment: Private Psychiatrist Appointment Date: Dec 18, 2017 Appointment Time: 11:00 am Discharge Time > 30 minutes Mental Status Examination Appearance: Appropriate Consciousness: Alert Orientation: x4 Motor Activity: Normal gait Speech: Slow Language: Adequate Fund of Knowledge: Adequate Attention and Concentration: Inadequate Memory: Unremarkable Mood: Sad Affect: Flat (but a bit brighter than yesterday) Thought Process & Associations: Intact Thought Content: Appropriate Hallucination Type: None Delusion Type: None Suicidal Ideation: No Suicidal Plan: No Suicidal Intention: No Homicidal Ideation: No Homicidal Plan: No Homicidal Intention: No Insight: Fair Judgment: Adequate (fair) Discharge/Advance Care Plan Health Problems: (1) Brief psychotic disorder Goals to promote your health * To prevent worsening of your condition and complications * To maintain your health at the optimal level Directions to meet your goals Take your medications as prescribed Follow your dietary instruction Follow activity as directed Keep your appointments as scheduled Take your immunizations and boosters as scheduled If your symptoms worsen call your PCP, if no PCP go to Urgent Care Center or Emergency Room For 11/06 questions related to your inpatient stay or results of tests pending at discharge, please contact Dr. Caio Wright at Smoking is Dangerous to Your Health. Avoid second hand smoking Caio Wright MD Dec 03, 2017 17:18
== END 2017-12-03 17:55 | disposition home or self-care (01) | DRG 885 ==
LOC: NEPD 13:36 → NEDA 22:43 → H260 23:26
PROVIDERS: ADMIT Psychiatry & Neurology Psychiatry; ATTEND Psychiatry & Neurology Psychiatry
DX: F23 Brief psychotic disorder (principal); R56.9 Unspecified convulsions; F25.1 Schizoaffective disorder, depressive type; F17.210 Nicotine dependence, cigarettes, uncomplicated
CPT/HCPCS: 80048; 80053; 80061; 80307; 83036; 84443; 85025; 93005; 99285